=== PATIENT | female | born 1935 ===

== ENCOUNTER 2018-05-23 12:37 | Emergency (ER) | payer OTHER ==
[2018-05-23 13:13] VITALS: RESP 18
[2018-05-23] MEDS ORDERED: Albuterol-Ipratrop 3 mg / 0.5 (3 ml) UD IH STA (13:50)
[2018-05-23] MEDS ORDERED: Sodium Chloride 0.9% 1,000 ML IV STA (13:50)
--- NOTE | 2018-05-23 14:03 | ED PDOC ---
History of Present Illness History of Present Illness: 82 years old female with history of hypercholesterolemia presents to ER for evaluation of nasal congestion, non productive cough and fever onset 2 days. Patient reports associated generalized abdominal pain, nausea and diarrhea since yesterday. She denies vomiting. PMD: non provided HPI: Influenza Time Seen by Provider: 05/23/18 13:26 Chief Complaint: Flu-like Symptoms Chief Complaint (Provider): Flu-like Symptoms History Per: Patient Exam Limitations: no limitations Symptoms include: cough (non productive), nasal congestion, diarrhea. denies: vomiting Past Medical History Reviewed: Historical Data, Nursing Documentation, Vital Signs Vital Signs: Last Vital Signs Temp 98 F 05/23/18 13:11 Pulse 65 05/23/18 13:11 Resp 18 05/23/18 13:11 BP 171/84 H 05/23/18 13:11 Pulse Ox 96 05/23/18 13:11 - Medical History PMH: Arthritis (left knee), HTN, Hypercholesterolemia Denies: Chronic Kidney Disease - Surgical History Surgical History: Cholecystectomy - Family History Family History: States: Unknown Family Hx - Social History Current smoker - smoking cessation education provided: No Ex-Smoker (has not smoked in the last 12 months): No Alcohol: None - Immunization History Hx Tetanus Toxoid Vaccination: No Hx Influenza Vaccination: No Hx Pneumococcal Vaccination: No - Home Medications Home Medications: Ambulatory Orders Medication Instructions Recorded Ibuprofen 600 mg PO Q8 #0 tab 05/07/15 Simvastatin 20 mg PO HS #0 tab 05/07/15 Albuterol 0.083% [Albuterol 3 ml IH Q8 #1 neb 05/23/18 Sulfate 3 Ml] Azithromycin [Zithromax] 250 mg PO DAILY #6 tab 05/23/18 Famotidine [Pepcid] 20 mg PO Q12 #20 tab 05/23/18 Non-Formulary 1 ea .ROUTE Q6 #1 ea 05/23/18 - Allergies Allergies/Adverse Reactions: Allergies Allergy/AdvReac Type Severity Reaction Status Date / Time ketorolac [From Toradol] Allergy RASH Verified 05/23/18 13:11 Penicillins Allergy RASH Verified 05/23/18 13:10 Review of Systems ROS Statement: Except As Marked, All Systems Reviewed And Found Negative Constitutional: Positive for: Fever ENT: Positive for: Nose Congestion Respiratory: Positive for: Cough (non productive) Gastrointestinal: Positive for: Nausea, Abdominal Pain (generalized), Diarrhea. Negative for: Vomiting Physical Exam - Reviewed Nursing Documentation Reviewed: Yes Vital Signs Reviewed: Yes - Physical Exam Appears: Positive for: Non-toxic, No Acute Distress Head Exam: Positive for: ATRAUMATIC, NORMOCEPHALIC Skin: Positive for: Normal Color, Warm, Dry ENT: Positive for: Normal ENT Inspection, Pharynx Is (clear). Negative for: Tonsillar Exudate Cardiovascular/Chest: Positive for: Regular Rate, Rhythm. Negative for: Murmur Respiratory: Positive for: Rhonchi (Scattered). Negative for: Wheezing, Respiratory Distress Gastrointestinal/Abdominal: Positive for: Tenderness (Mild to right upper quadra nt). Negative for: Guarding, Rebound Extremity: Positive for: Normal ROM. Negative for: Tenderness, Swelling Neurologic/Psych: Positive for: Alert, Oriented (x3) Medical Decision Making Medical Decision Making: Time: 1347 Initial Plan: --Labs --Chest x-ray --Albuterol 3 ml IH --NaCl 1,000 ml IV 100 mls/hr --Pepcid 20 mg IVP --Zofran 4 mg IVP 1507 Chest X-Ray FINDINGS: LUNGS: No alveolitis bilaterally. Irregular markings are slightly increased at the bases may reflect early atypical pneumonitis. Clinically correlate further. PLEURA: No significant pleural effusion identified. No pneumothorax apparent. CARDIOVASCULAR: Calcific atherosclerotic changes are seen related to the thoracic aorta. Th oracic aortic ectasis reiterated. Mild cardiomegaly stable. No pulmonary vascular congestion. OSSEOUS STRUCTURES: No significant abnormalities. VISUALIZED UPPER ABDOMEN: Prior cholecystectomy right upper quadrant. OTHER FINDINGS: None. IMPRESSION: Reticular markings in the bilateral bases may reflect early atypical pneumonitis. No alveolitis grossly evident bilaterally. No pleural effusion or pneumothorax. No pulmonary vascular congestion. Mild cardiomegaly stable. Scribe Attestation: Documented by Joseline Rust, acting as a scribe for Conrado Mckenna MD. Provider Scribe Attestation: All medical record entries made by the Scribe were at my direction and personally dictated by me. I have reviewed the chart and agree that the record accurately reflects my personal performance of the history, physical exam, medical decision making, and the department course for this patient. I have also personally directed, reviewed, and agree with the discharge instructions and disposition. - Laboratory Results Result Diagrams: 05/23/18 13:50 05/23/18 13:50 - ECG O2 Sat by Pulse Oximetry: 96 Disposition - Clinical Impression Clinical Impression: Bronchitis - Patient ED Disposition Is Patient to be Admitted: No Counseled Patient/Family Regarding: Studies Performed, Diagnosis, Need For Followup, Rx Given - Disposition Referrals: [facility] [Outside] Disposition: Routine/Home Disposition Time: 15:51 Condition: FAIR Prescriptions: Albuterol 0.083% [Albuterol Sulfate 3 Ml] 3 ml IH Q8 #1 neb Azithromycin [Zithromax] 250 mg PO DAILY #6 tab Famotidine [Pepcid] 20 mg PO Q12 #20 tab Non-Formulary 1 ea .ROUTE Q6 #1 ea Instructions: Acute Bronchitis Forms: [facility] (Tongan) Print Language: AZERI
[2018-05-23 14:18] LABS: BASO # 0.1 K/uL (0.0-0.2); BASO % 1.2 % (0.0-2.0); EOS # 0.3 K/uL (0.0-0.7); EOS % 5.7 % (0.0-4.0); LYMPH # 1.2 K/uL (1.0-4.3); LYMPH % 25.6 % (20.0-40.0); MEAN CELL VOLUME 93.6 fl (81.0-99.0); MEAN CORPUSCULAR HEMOGLOBIN 31.8 pg (27.0-31.0); MEAN PLATELET VOLUME 8.3 fl (7.2-11.7); MONO # 0.5 K/uL (0.0-0.8); MONO % 10.9 % (0.0-10.0); NEUT # 2.7 K/uL (1.8-7.0); NEUT % 56.6 % (50.0-75.0); NRBC % 0.1 % (0.0-0.0); RBC 4.38 Mil/uL (3.80-5.20); RED CELL DISTRIBUTION WIDTH 13.8 % (11.5-14.5); WHITE BLOOD COUNT 4.8 K/uL (4.8-10.8)
[2018-05-23 14:26] LABS: ALB/GLOB RATIO 1.2 (1.0-2.1); ALBUMIN 4.1 g/dL (3.5-5.0); ALT/SGPT 25 U/L (9-52); AST/SGOT 23 U/L (14-36); BLOOD UREA NITROGEN 20 mg/dl (7-17); CALCIUM 10.8 mg/dL (8.4-10.2); GFR NON-AFRICAN AMERICAN > 60
--- NOTE | 2018-05-23 15:11 | RAD ---
Date of service: 05/23/2018 HISTORY: cough COMPARISON: Portable chest 05/06/2015. TECHNIQUE: Chest PA and lateral FINDINGS: LUNGS: No alveolitis bilaterally. Irregular markings are slightly increased at the bases may reflect early atypical pneumonitis. Clinically correlate further. PLEURA: No significant pleural effusion identified. No pneumothorax apparent. CARDIOVASCULAR: Calcific atherosclerotic changes are seen related to the thoracic aorta. Thoracic aortic ectasis reiterated. Mild cardiomegaly stable. No pulmonary vascular congestion. OSSEOUS STRUCTURES: No significant abnormalities. VISUALIZED UPPER ABDOMEN: Prior cholecystectomy right upper quadrant. OTHER FINDINGS: None. IMPRESSION: Reticular markings in the bilateral bases may reflect early atypical pneumonitis. No alveolitis grossly evident bilaterally. No pleural effusion or pneumothorax. No pulmonary vascular congestion. Mild cardiomegaly stable.
[2018-05-23 17:10] VITALS: BP 132/74; PULSE 82; TEMP 98.6; O2SAT 98
== END 2018-05-23 17:18 | disposition home or self-care (01) ==
LOC: H.ER 12:37
DX: J40 Bronchitis, not specified as acute or chronic (principal); E78.00 Pure hypercholesterolemia, unspecified; Z88.0 Allergy status to penicillin
CPT/HCPCS: 71046; 80053; 81025; 85025; 87040; 87804; 96374; 96375; 99284; J2405; J7030